=== PATIENT | female | born 1975 | race Caucasian/White ===

== ENCOUNTER → 2020-12-13 | Outpatient (CLI) | payer BC ==
--- NOTE | 2020-12-13 12:44 | Diagnostic Imaging Report ---
INDICATION: Routine screening. COMPARISON: No prior mammograms are available for comparison. This is a baseline study. TECHNIQUE: 2D and 3D bilateral screening mammography was performed with CAD. FINDINGS: Scattered fibroglandular densities are identified bilaterally. There are benign calcifications in both breasts. No mass or malignant-appearing microcalcifications are seen. The axillae are unremarkable. IMPRESSION: No mammographic features suspicious for malignancy are identified. ACR BI-RADS Category 2: Benign findings. Result letter will be mailed to the patient. Note: At least 10% of breast cancer is not imaged by mammography. Dictated by: Dictated on workstation # [id number]
--- NOTE | 2020-12-13 14:37 | Diagnostic Imaging Report ---
PROCEDURE: Pelvic comp/transvaginal sonogram. TECHNIQUE: Complete transabdominal and transvaginal pelvic ultrasound was performed. In addition, limited pelvic Doppler was performed. INDICATION: Abnormal uterine bleeding. The uterus is anteverted measuring 7.7 x 4.6 x 5.6 cm. Endometrium is 8 mm in thickness. There are uterine fibroids present. Largest is approximately 2.4 x 2.4 x 1.5 cm. The right ovary measures 3.8 x 2.8 x 1.7 cm. There appears to be an exophytic cyst arising from the right ovary measuring approximately 12 mm in size. There is a probable hemorrhagic cyst involving the right ovary approximately 17 mm in diameter. Left ovary was not well visualized but there is a large mass in the left adnexa measuring 6.8 x 4.1 x 5.2 cm. No normal ovarian tissue is identified. There is no internal vascularity. This could represent a large hemorrhagic cyst. Trace free fluid is noted. IMPRESSION: 1. Fibroid uterus. 2. Probable hemorrhagic cyst involving the right ovary. There is a large complex adnexal mass on the left without normal visualized ovarian tissue. This could represent a very large hemorrhagic cyst. Close interval follow-up is recommended. Repeat pelvic ultrasound in 4-6 weeks is recommended to show stability or clearing. Dictated by: Dictated on workstation # [id number]
== END ==
LOC: RAD 11:30
PROVIDERS: ATTEND Obstetrics & Gynecology
DX: Z12.31 Encounter for screening mammogram for malignant neoplasm of breast (principal); D25.9 Leiomyoma of uterus, unspecified; N84.1 Polyp of cervix uteri
CPT/HCPCS: 76830; 76856; 77063; 77067

== ENCOUNTER → 2021-04-06 | Outpatient (CLI) | payer BC ==
--- NOTE | 2021-04-06 17:06 | Diagnostic Imaging Report ---
PROCEDURE: US Non-ob pelvis comp/trans. TECHNIQUE: Multiple realtime grayscale images were obtained of the pelvis in various projections endovaginally. Transabdominal imaging was also performed. INDICATION: Complex lesion of the left ovary. Followup. COMPARISON: 12/13/2020 FINDINGS: Uterus is retroverted and measures 7.8 cm in length by 5.7 cm in AP dimension by 5.4 cm transversely. There is fairly well-circumscribed heterogeneity likely partially calcified lesion within the myometrium suggestive of likely old fibroid. Similar smaller lesions are also noted. Endometrial stripe measures 7 mm in thickness. Visualized portions of the cervix suggest soft tissue filling defect within the cervical canal. Color flow images show presence of internal vascularity. Lesion in question measures 1.5 x 0.4 cm. Left adnexal lesion is again identified and shows heterogeneic internal appearance, but with overall generalized hypoechogenicity. Color flow images show no central vascular flow. Lesion in question measures 5.9 x 3.4 x 5 cm. Previously, this measured 6.8 x 4.1 x 5.2 cm. There is posterior acoustic enhancement. As a whole, left ovary measures 5.9 x 4.1 x 5 cm. Right ovary is not well visualized. There is no free fluid. IMPRESSION: 1. Redemonstration hypoechoic avascular lesion associated with the left ovary. Given its persistence when compared 12/13/2020, hemorrhagic cyst is felt to be unlikely. Conceivably, this could be on the basis of large endometrioma. Correlation with MRI may be of benefit. 2. Soft tissue lesion within the endocervical canal. This could be on the basis of prolapsed endometrial polyp. Cervical neoplasm is also within the differential. Correlation with speculum exam is recommended. 3. Fibroid uterus. Dictated by: Dictated on workstation # [id number]
== END ==
LOC: RAD 15:15
PROVIDERS: ATTEND Obstetrics & Gynecology
DX: D25.9 Leiomyoma of uterus, unspecified (principal); N83.292 Other ovarian cyst, left side
CPT/HCPCS: 76830; 76856

== ENCOUNTER → 2021-12-18 | Outpatient (CLI) | payer BC ==
--- NOTE | 2021-12-18 12:57 | Diagnostic Imaging Report ---
INDICATION: Routine screening. COMPARISON: 12/13/2020. TECHNIQUE: 2D and 3D bilateral screening mammography was performed with CAD. FINDINGS: Scattered fibroglandular densities are identified bilaterally. There are benign nodular densities in both breasts. Scattered benign calcifications are noted. No spiculated mass or malignant-appearing microcalcifications are seen. The axillae are unremarkable. IMPRESSION: No mammographic features suspicious for malignancy are identified. ACR BI-RADS Category 2: Benign findings. Result letter will be mailed to the patient. Note: At least 10% of breast cancer is not imaged by mammography. Dictated by: Dictated on workstation # [id number]
== END ==
LOC: RAD 08:45
PROVIDERS: ATTEND Registered Nurse Emergency
DX: Z12.31 Encounter for screening mammogram for malignant neoplasm of breast (principal)
CPT/HCPCS: 77063; 77067

== ENCOUNTER → 2022-12-19 | Outpatient (CLI) | payer BC, OTHER ==
--- NOTE | 2022-12-20 12:15 | Diagnostic Imaging Report ---
INDICATION: Routine screening. Comparison is made with prior mammogram from 12/18/2021 and 12/13/2020. 2-D and 3-D bilateral screening mammography was performed with CAD. Both breasts are heterogeneously dense, limiting the sensitivity of mammography. There are benign calcifications bilaterally. No mass or malignant-appearing microcalcifications are seen. Axillae are unremarkable. IMPRESSION: No mammographic features suspicious for malignancy are identified. ACR BI-RADS Category 2: Benign findings. Result letter will be mailed to the patient. Note: At least 10% of breast cancer is not imaged by mammography. BI-RADS Category 2 Dictated by: Dictated on workstation # [id number]
== END ==
LOC: RAD 15:45
PROVIDERS: ATTEND Registered Nurse Emergency
DX: Z12.31 Encounter for screening mammogram for malignant neoplasm of breast (principal)
CPT/HCPCS: 77063; 77067